=== PATIENT | female | born 2000 ===

== ENCOUNTER 2024-07-11 16:08 | Outpatient (REF) | payer SELFPAY ==
[2024-07-13 12:50] LABS: Chlamydia Result Negative (Negative); GC Result Negative (Negative)
== END 2024-07-11 16:09 | disposition home or self-care (01) ==
LOC: LBN 16:08
PROVIDERS: Visit Provider Nurse Practitioner Family
DX: R10.30 Lower abdominal pain, unspecified (principal)
CPT/HCPCS: 87491; 87591

== ENCOUNTER 2024-11-01 10:55 | Outpatient (REF) | payer SELFPAY ==
[2024-11-01 14:30] LABS: Abs Immature Grans 0.03 10^3/uL (0.0-0.06); Absolute Basophil Count 0.03 10^3/uL (0.0-0.2); Absolute Eosinophil Count 0.07 10^3/uL (0.0-0.7); Absolute Neutrophil Count 2.93 10^3/uL (1.2-6.7); Basophils % 0.6 %; Eosinophils % 1.4 %; HCT 43.1 % (36.0-46.0); HGB 14.6 g/dL (11.2-15.7); Immature Grans % 0.6 %; Lymphocytes % 33.6 %; MCH 30.4 pg (27.0-33.0); MCHC 33.9 % (32.0-36.0); MCV 90 fL (80-95); MPV 11.8 fL (8.0-11.0); Monocytes % 5.9 %; Neutrophils % 57.9 %; Platelet Count 246 10^3/uL (130-400); RBC 4.81 10^6/uL (3.93-5.22); RDW 11.9 % (11.7-14.6); RDW-SD 39.1 fL; WBC 5.06 10^3/uL (4.4-10.8)
[2024-11-01 16:48] LABS: ALT 171 U/L (14-59); AST 70 U/L (15-37); Albumin 4.2 g/dL (3.4-5.0); Alkaline Phosphatase 113 U/L (46-116); Anion Gap 14.4 mmol/L (3-11); BUN 15 mg/dL (7-18); Bilirubin, Total 0.3 mg/dL (0.2-1.0); CO2 21.6 mmol/L (21.0-32.0); CREATININE 0.6 mg/dL (0.55-1.02); Calcium 9.1 mg/dL (8.5-10.1); Calculated LDL 112 mg/dL (<100); Chloride 107 mmol/L (98-107); Cholesterol 193 mg/dL (<200); Estimated GFR 130.07 (mL/min/1.73m2); Glucose 96 mg/dL (74-106); HDL Cholesterol 47 mg/dL (>or=50); Potassium 4.1 mmol/L (3.5-5.1); Sodium 143 mmol/L (136-145); TSH 3.04 uIU/mL (0.36-3.74); Triglyceride 172 mg/dL (<150)
== END 2024-11-01 10:56 | disposition home or self-care (01) ==
LOC: NCHCN 10:55
PROVIDERS: Visit Provider Physician Assistant
DX: Z13.6 Encounter for screening for cardiovascular disorders (principal); Z13.220 Encounter for screening for lipoid disorders
CPT/HCPCS: 80053; 80061; 84443; 85025

== ENCOUNTER 2024-11-13 14:22 | Outpatient (REF) | payer SELFPAY ==
[2024-11-15 10:59] LABS: HIV-1/2 Ag & Ab Screen Negative (Negative)
[2024-11-15 11:08] LABS: Hepatitis A Antibody IgM Negative (Negative); Hepatitis B Core Antibody Negative (Negative); Hepatitis B surface Ag Negative (Negative); Hepatitis C Ab w Rflx HCV PCR Negative (Negative)
== END 2024-11-13 14:23 | disposition home or self-care (01) ==
LOC: NCHCN 14:22
PROVIDERS: Visit Provider Physician Assistant
DX: R79.89 Other specified abnormal findings of blood chemistry (principal)
CPT/HCPCS: 86704; 86709; 86803; 87340; 87389

== ENCOUNTER 2024-11-15 18:49 | Outpatient (REF) | payer SELFPAY ==
[2024-11-17 11:41] LABS: Chlamydia Result Negative (Negative); GC Result Negative (Negative)
== END 2024-11-15 18:50 | disposition home or self-care (01) ==
LOC: NCHCN 18:49
PROVIDERS: Visit Provider Family Medicine
DX: Z11.3 Encounter for screening for infections with a predominantly sexual mode of transmission (principal)
CPT/HCPCS: 87491; 87591